=== PATIENT | female | born 1985 | race Caucasian/White ===

== ENCOUNTER 2021-10-16 12:34 | Emergency (ER) | payer OTHER ==
[2021-10-16 13:16] LABS: BASOPHIL 0.6 % (0-2); EOSINOPHIL 2.3 % (0-5); HCT 38.8 % (37.0-47.0); HGB 12.9 g/dl (12.5-16.0); LYMPHOCYTE 21.3 % (15-48); MCH 28.4 pg (25.0-31.0); MCHC 33.2 g/dL (32.0-36.0); MCV 85.5 fL (78.0-100.0); MONOCYTE 6.4 % (0-12); MPV 9.7 fL (6.0-9.5); NEUTROPHIL 69.1 % (41-80); NRBC 0; PLT 326 K/uL (150-400); RBC 4.54 M/uL (4.20-5.40); RDW 12.6 % (11.5-14.0); WBC 7.9 K/uL (4.0-10.5)
[2021-10-16 13:42] LABS: ALBUMIN 3.5 g/dL (3.4-5.0); BILIRUBIN - TOTAL 0.4 mg/dL (0.2-1.0); BUN/CREAT RATIO (CALC) 14.1 RATIO; CREATININE 0.64 mg/dL (0.51-0.95); POTASSIUM 3.5 mmol/L (3.5-5.1); TOTAL PROTEIN 7.5 g/dL (6.4-8.2)
== END 2021-10-16 16:38 | disposition left against medical advice (07) ==
LOC: FER 12:34
PROVIDERS: Emergency Medicine
DX: I20.0 Unstable angina (principal); M94.0 Chondrocostal junction syndrome [Tietze]; Z53.29 Procedure and treatment not carried out because of patient's decision for other reasons
CPT/HCPCS: 36415; 71045; 80053; 82553; 84484; 85025; 85379; 93005